=== PATIENT | male | born 1940 | race Caucasian/White ===

== ENCOUNTER → 2016-05-28 | Outpatient (CLI) | payer OTHER ==
[~2016-05-28] MED LIST: AMLO2.5T PO; ASPI-515 PO; DEXA4TAB PO; DIPH25CA61 PO; DOXA2TAB9 PO; FISH12002 PO; GADOBUTROL 10 MMOL/10 ML PFS ONE; LEVE500T53 PO; MELA5TAB PO; MU-V1TAB29 PO; PRED20TA PO; PUMP300C PO; TAMS0.4C2 PO; VITA1TAB65 PO; [UNRECOGNIZED DRUG - OTHER] PO; [UNRECOGNIZED DRUG - OTHER] PO; [UNRECOGNIZED DRUG - OTHER] PO
== END | disposition home or self-care (01) ==
LOC: CFH 12:22
PROVIDERS: ATTEND Psychiatry & Neurology Neurology
DX: D43.0 Neoplasm of uncertain behavior of brain, supratentorial (principal); G93.6 Cerebral edema
CPT/HCPCS: 70553; 82565; A9585